=== PATIENT | female | born 1955 | race Caucasian/White ===

== ENCOUNTER → 2018-12-27 | Outpatient (CLI) | payer OTHER ==
[~2018-12-27] MED LIST: ALLO300 PO; AMOX500 PO; ASPI81CH PO; AZIT500 PO; Aspir 8181 MG PO; CEPH500 PO; CODACE30 PO; CYCL10 PO; DELTASONE20 MG PO; FURO20 PO; HYDACE5 PO; HYDURE500 PO; MELO7.5 PO; OXYACE5T PO; POTCHL20ER PO; SULTRIDS PO; Sprycel100 MG PO; TRAM50 PO
[2018-12-31 13:07] LABS: HPV 16 Negative (Negative); HPV 18 Negative (Negative); HPV OTHER HR TYPES Negative (Negative)
== END | disposition home or self-care (01) ==
LOC: LAB 12:00 → LAB SHORT 12:00
PROVIDERS: Physician Assistant
DX: Z01.419 Encounter for gynecological examination (general) (routine) without abnormal findings (principal)
CPT/HCPCS: 87624; G0145

== ENCOUNTER → 2019-01-03 | Outpatient (CLI) | payer OTHER | END | disposition home or self-care (01) | LOC: LAB SHORT 13:34 → LAB EV 13:34 | DX: T22.011A Burn of unspecified degree of right forearm, initial encounter (principal) | CPT/HCPCS: 87070; 87075; 87205 ==

== ENCOUNTER → 2019-05-28 | Outpatient (CLI) | payer OTHER ==
[2019-05-28 11:25] LABS: BASOPHILS ABSOLUTE AUTO 0.04 K/mm3 (0.00-0.23); BASOPHILS PERCENT AUTO 1 % (0-2); EOSINOPHILS ABSOLUTE AUTO 0.15 K/mm3 (0.00-0.68); EOSINOPHILS PERCENT AUTO 2 % (0-6); Hematocrit 39.3 % (33.0-51.0); Hemoglobin 12.9 g/dL (11.5-16.0); IMMATURE GRAN ABSOLUTE AUTO 0.03 K/mm3 (0.00-0.10); IMMATURE GRAN PERCENT AUTO 0 % (0-1); LYMPHOCYTES ABSOLUTE AUTO 0.86 K/mm3 (0.84-5.20); LYMPHOCYTES PERCENT AUTO 12 % (21-46); MONOCYTES ABSOLUTE AUTO 0.73 K/mm3 (0.16-1.47); MONOCYTES PERCENT AUTO 10 % (4-13); Mean Corpuscular HGB 29.7 pg (26.0-34.0); Mean Corpuscular HGB Conc 32.8 g/dL (31.5-36.5); Mean Corpuscular Volume 91 fL (80-100); Mean Platelet Volume 10.4 fL (9.1-12.4); NEUTROPHILS ABSOLUTE AUTO 5.57 K/mm3 (1.96-9.15); NEUTROPHILS PERCENT AUTO 76 % (41-73); Platelet Count 226 K/mm3 (150-400); RDW Coefficient Variation 15.7 % (11.7-14.2); RDW Standard Deviation 51.9 fL (35.1-46.3); Red Blood Cell Count 4.34 M/mm3 (3.80-5.20); White Blood Cell Count 7.38 K/mm3 (4.00-11.30)
== END ==
LOC: LAB EV 11:21 → LAB SHORT 11:21
PROVIDERS: Physician Assistant
DX: C92.11 Chronic myeloid leukemia, BCR/ABL-positive, in remission (principal)
CPT/HCPCS: 85025

== ENCOUNTER → 2019-06-05 | Outpatient (CLI) | payer OTHER ==
[2019-06-05 15:46] LABS: Anion Gap 6 mmol/L (6-16); Blood Urea Nitrogen 9 mg/dL (8-24); Bun/Creatinine Ratio 17.6 (12.0-20.0); CO2, Blood 33 mmol/L (21-32); Calcium, Blood 8.5 mg/dL (8.5-10.1); Chloride, Blood 101 mmol/L (98-108); Creatinine, Blood 0.51 mg/dL (0.40-1.00); Glomerular Filtration Rate >60 (60-); Glucose, Blood 98 mg/dL (70-99); Potassium, Blood 4.1 mmol/L (3.5-5.5); Sodium, Blood 140 mmol/L (136-145)
[2019-06-05 15:56] LABS: BASOPHILS ABSOLUTE AUTO 0.04 K/mm3 (0.00-0.23); BASOPHILS PERCENT AUTO 1 % (0-2); EOSINOPHILS PERCENT AUTO 4 % (0-6); Hematocrit 38.6 % (33.0-51.0); Hemoglobin 12.5 g/dL (11.5-16.0); IMMATURE GRAN ABSOLUTE AUTO 0.01 K/mm3 (0.00-0.10); IMMATURE GRAN PERCENT AUTO 0 % (0-1); LYMPHOCYTES ABSOLUTE AUTO 1.32 K/mm3 (0.84-5.20); LYMPHOCYTES PERCENT AUTO 17 % (21-46); MONOCYTES ABSOLUTE AUTO 0.81 K/mm3 (0.16-1.47); MONOCYTES PERCENT AUTO 11 % (4-13); Mean Corpuscular HGB 29.1 pg (26.0-34.0); Mean Corpuscular HGB Conc 32.4 g/dL (31.5-36.5); Mean Corpuscular Volume 90 fL (80-100); Mean Platelet Volume 9.3 fL (9.1-12.4); NEUTROPHILS ABSOLUTE AUTO 5.22 K/mm3 (1.96-9.15); NEUTROPHILS PERCENT AUTO 68 % (41-73); Platelet Count 342 K/mm3 (150-400); RDW Coefficient Variation 14.7 % (11.7-14.2); RDW Standard Deviation 48.9 fL (35.1-46.3); Red Blood Cell Count 4.29 M/mm3 (3.80-5.20)
== END | disposition home or self-care (01) ==
LOC: LAB EV 15:37 → LAB SHORT 15:37
PROVIDERS: Physician Assistant Surgical
DX: R06.00 Dyspnea, unspecified (principal)
CPT/HCPCS: 80048; 83880; 85025

== ENCOUNTER 2019-09-11 08:37 | Day surgery (SDC) | payer OTHER ==
[~2019-09-11] VITALS: Ht 160 cm; Wt 73.0 kg
[2019-09-11] MEDS ORDERED: INCRUSE ELLI62.5 MC1 (09:01)
[2019-09-11] MEDS ORDERED: ALBU3IS (09:01)
== END 2019-09-11 10:38 | disposition home or self-care (01) ==
LOC: ORSCSDS 08:37
PROVIDERS: Internal Medicine Gastroenterology
PROC: 0DBN8ZX Excision of Sigmoid Colon, Via Natural or Artificial Opening Endoscopic, Diagnostic (ICD-10-PCS; principal; 2019-09-11 09:45)
PROC: 0DBL8ZX Excision of Transverse Colon, Via Natural or Artificial Opening Endoscopic, Diagnostic (ICD-10-PCS; principal; 2019-09-11 09:45)
PROC: 0DBH8ZX Excision of Cecum, Via Natural or Artificial Opening Endoscopic, Diagnostic (ICD-10-PCS; principal; 2019-09-11 09:45)
DX: Z12.11 Encounter for screening for malignant neoplasm of colon (principal); D12.0 Benign neoplasm of cecum; D12.3 Benign neoplasm of transverse colon; K64.8 Other hemorrhoids; K57.30 Diverticulosis of large intestine without perforation or abscess without bleeding; K52.9 Noninfective gastroenteritis and colitis, unspecified; D12.5 Benign neoplasm of sigmoid colon; J44.9 Chronic obstructive pulmonary disease, unspecified; Z87.891 Personal history of nicotine dependence; Z79.82 Long term (current) use of aspirin; Z79.899 Other long term (current) drug therapy
CPT/HCPCS: 88305; J2704; J7120

== ENCOUNTER → 2021-02-28 | Outpatient (CLI) | payer OTHER ==
[~2021-02-28] MED LIST changes: +ALBU3IS; +INCRUSE ELLI62.5 MC1
[2021-02-28 11:15] LABS: BASOPHILS ABSOLUTE AUTO 0.01 K/mm3 (0.00-0.23); BASOPHILS PERCENT AUTO 0 % (0-2); EOSINOPHILS PERCENT AUTO 0 % (0-6); Hematocrit 33.2 % (33.0-51.0); IMMATURE GRAN ABSOLUTE AUTO 0.01 K/mm3 (0.00-0.10); IMMATURE GRAN PERCENT AUTO 0 % (0-1); LYMPHOCYTES ABSOLUTE AUTO 0.54 K/mm3 (0.84-5.20); LYMPHOCYTES PERCENT AUTO 15 % (21-46); MONOCYTES PERCENT AUTO 11 % (4-13); Mean Corpuscular HGB 27.7 pg (26.0-34.0); Mean Corpuscular HGB Conc 33.1 g/dL (31.5-36.5); Mean Corpuscular Volume 84 fL (80-100); Mean Platelet Volume 10.4 fL (9.1-12.4); NEUTROPHILS ABSOLUTE AUTO 2.69 K/mm3 (1.96-9.15); NEUTROPHILS PERCENT AUTO 74 % (41-73); Platelet Count 202 K/mm3 (150-400); RDW Coefficient Variation 14.6 % (11.7-14.2); RDW Standard Deviation 44.1 fL (35.1-46.3); Red Blood Cell Count 3.97 M/mm3 (3.80-5.20); White Blood Cell Count 3.65 K/mm3 (4.00-11.30)
[2021-02-28 11:52] LABS: Alanine Aminotransfer (ALT/SGP 22 U/L (12-78); Albumin, Blood 2.8 g/dL (3.4-5.0); Albumin/Globulin Ratio 0.9 (0.8-1.8); Alk Phos 53 U/L (50-136); Anion Gap 8 mmol/L (6-16); Aspartate Aminotrans (AST/SGOT 24 U/L (12-37); Bilirubin, Total 0.2 mg/dL (0.1-1.0); Blood Urea Nitrogen 14 mg/dL (8-24); CO2, Blood 30 mmol/L (21-32); Calcium, Blood 8.3 mg/dL (8.5-10.1); Chloride, Blood 98 mmol/L (98-108); Creatinine, Blood 0.56 mg/dL (0.40-1.00); Globulin, Blood 3.1 g/dL (2.2-4.0); Glomerular Filtration Rate >60 (60-); Glucose, Blood 94 mg/dL (70-99); Potassium, Blood 3.7 mmol/L (3.5-5.5); Sodium, Blood 136 mmol/L (136-145); Total Protein, Blood 5.9 g/dL (6.4-8.2)
== END | disposition home or self-care (01) ==
LOC: LAB 11:10 → LAB SHORT 11:10
PROVIDERS: Physician Assistant
DX: J18.9 Pneumonia, unspecified organism (principal)
CPT/HCPCS: 80053; 85025; 85379

== ENCOUNTER 2022-04-18 15:10 | Inpatient (IN) | payer MEDICARE, OTHER ==
[~2022-04-18] VITALS: Ht 160 cm; Wt 74.8 kg
[2022-04-18 16:25] LABS: BASOPHILS ABSOLUTE AUTO 0.01 K/mm3 (0.00-0.23); BASOPHILS PERCENT AUTO 0 % (0-2); EOSINOPHILS ABSOLUTE AUTO 0.04 K/mm3 (0.00-0.68); EOSINOPHILS PERCENT AUTO 1 % (0-6); Hematocrit 36.6 % (33.0-51.0); Hemoglobin 11.8 g/dL (11.5-16.0); IMMATURE GRAN ABSOLUTE AUTO 0.01 K/mm3 (0.00-0.10); IMMATURE GRAN PERCENT AUTO 0 % (0-1); LYMPHOCYTES ABSOLUTE AUTO 0.54 K/mm3 (0.84-5.20); LYMPHOCYTES PERCENT AUTO 10 % (21-46); MONOCYTES ABSOLUTE AUTO 0.92 K/mm3 (0.16-1.47); MONOCYTES PERCENT AUTO 16 % (4-13); Mean Corpuscular HGB 28.4 pg (26.0-34.0); Mean Corpuscular HGB Conc 32.2 g/dL (31.5-36.5); Mean Corpuscular Volume 88 fL (80-100); Mean Platelet Volume 9.7 fL (9.1-12.4); NEUTROPHILS ABSOLUTE AUTO 4.17 K/mm3 (1.96-9.15); NEUTROPHILS PERCENT AUTO 73 % (41-73); Platelet Count 316 K/mm3 (150-400); RDW Coefficient Variation 13.8 % (11.7-14.2); RDW Standard Deviation 44.7 fL (35.1-46.3); Red Blood Cell Count 4.15 M/mm3 (3.80-5.20); White Blood Cell Count 5.69 K/mm3 (4.00-11.30)
[2022-04-18 16:47] LABS: Albumin, Blood 3.1 g/dL (3.4-5.0); Albumin/Globulin Ratio 0.7 (0.8-1.8); Bilirubin, Total 0.4 mg/dL (0.1-1.0); Bun/Creatinine Ratio 27.1 (12.0-20.0); Calcium, Blood 9.3 mg/dL (8.5-10.1); Creatinine, Blood 0.44 mg/dL (0.40-1.00); Globulin, Blood 4.2 g/dL (2.2-4.0); Potassium, Blood 3.5 mmol/L (3.5-5.5); Total Protein, Blood 7.3 g/dL (6.4-8.2)
[2022-04-18 19:41] LABS: CPK Creatine Kinase 69 U/L (26-193)
[2022-04-18 19:48] LABS: Source, Urine Foley catheter
[2022-04-18 19:58] LABS: Appearance, Urine Clear (Clear); Bilirubin, Urine Neg (Neg); Blood, Urine 1+ (Neg); Color, Urine Yellow (P-Yellow); Glucose Qualitative, Urine Neg (Neg); Ketones, Urine 4+ (Neg); Leukocyte Esterase, Urine Neg (Neg); Nitrite, Urine Neg (Neg); Protein, Urine 3+ (Neg); Urobilinogen, Urine 1+ (Normal)
[2022-04-18 20:28] LABS: Bacteria Rare /hpf; Mucus Light (0-Heavy); Red Blood Cells, Urine 0-2 /hpf (0-2); Squamous Epithelial Cells Rare /hpf (Few); White Blood Cells, Urine 0-2 /hpf (0-5)
[2022-04-19] MEDS ORDERED: ALDACTONE100 MG (00:36)
[2022-04-19] MEDS ORDERED: DULERA 100 MCG/13 GM INH (00:37)
[2022-04-19] MEDS ORDERED: TIOT18 INH (00:39)
--- NOTE | 2022-04-19 01:08 | NUR ---
ADMISSION PT ADMITTED TO PCU 16, PT IS A&O X4, SBA, ULLOA CATH IN PLACE DRAINING CLEAR YELLOW URINE. LUNG SOUNDS DIMINISHED BILATERAL W/INTERMITTENT WHEEZES, PT IS ON CPAP 5 L O2. PT ORIENTED TO ROOM, CALL LIGHT IN REACH.
[2022-04-19 04:00] LABS: Albumin, Blood 2.6 g/dL (3.4-5.0); Albumin/Globulin Ratio 0.6 (0.8-1.8); Bilirubin, Total 0.4 mg/dL (0.1-1.0); Bun/Creatinine Ratio 29.3 (12.0-20.0); Calcium, Blood 8.4 mg/dL (8.5-10.1); Creatinine, Blood 0.44 mg/dL (0.40-1.00); Globulin, Blood 4.3 g/dL (2.2-4.0); Potassium, Blood 4.2 mmol/L (3.5-5.5); Total Protein, Blood 6.9 g/dL (6.4-8.2)
[2022-04-19 04:01] LABS: Hematocrit 36.3 % (33.0-51.0); Mean Corpuscular HGB 28.1 pg (26.0-34.0); Mean Corpuscular HGB Conc 33.1 g/dL (31.5-36.5); Mean Corpuscular Volume 85 fL (80-100); RDW Coefficient Variation 13.8 % (11.7-14.2); RDW Standard Deviation 42.5 fL (35.1-46.3); Red Blood Cell Count 4.27 M/mm3 (3.80-5.20)
[2022-04-19 04:03] LABS: Mean Platelet Volume 10.5 fL (9.1-12.4); Platelet Count 289 K/mm3 (150-400)
[2022-04-19 05:23] LABS: BAND PERCENT MAN 13 % (0-8); BASOPHILS PERCENT MAN 0 % (0-2); EOSINOPHILS PERCENT MAN 0 % (0-6); LYMPHOCYTES ABSOLUTE MAN 0.31 K/mm3 (0.84-5.20); LYMPHOCYTES PERCENT MAN 6 % (21-46); METAMYELOCYTE ABSOLUTE MAN 0.05 K/mm3 (0.00-0.00); METAMYELOCYTE PERCENT MAN 1 % (0-0); MONOCYTES ABSOLUTE MAN 0.05 K/mm3 (0.16-1.47); MONOCYTES PERCENT MAN 1 % (4-13); NEUTROPHILS ABSOLUTE MAN 4.78 K/mm3 (1.96-9.15); SEG NEUTROPHILS PERCENT MAN 79 % (41-73); TOTAL CELLS COUNTED 100
--- NOTE | 2022-04-19 07:30 | NUR ---
INITIAL ASSESSMENT: Patient is awake sitting up in bed coughing, she is alert and oriented. She denies pain at this time. HRR, SR in the 90s with a BBB per telemetry,pt denies chest pain some shortness of breath related to the pneumonia. Biox is 98% on 5L via NC, this RN was able to titrate oxygen down to 3l via NC while in the room, saturations remain in the low 90s. She has a PC with thick brothers sputum, sputum sample sent this AM. BT+, pt states her nausea has subsided this am but that she is hungry-plan to talk with MD about diet order. PPP. VSS. Patient denies other needs at this time. Call light in reach.
--- NOTE | 2022-04-19 18:04 | NUR ---
PATIENT TRANSFERRED FROM PCU 16 TO ROOM 325, REPORT RECEIVED FROM ADELFO SHARP. A/OX4, PATIENT ABLE TO TRANSFER WITH A SBA. VSS, 3LO2 TO MAINTAIN SATS. LUNGS CLEAR/DIMINISHED. ORIENTED TO ROOM AND USE OF CALL LIGHT.
--- NOTE | 2022-04-20 04:09 | NUR ---
ME[employer] SAL[employer] MANAGER SUMMARY VSS. HOB ELEVATED FOR RESP COMFORT, SHE SEEMED TO BE COUGHING MORE OFTEN WHEN LAYING FLAT. O2 PER NC AT 3L/NC. VOICED HEADACHE, NOTIFIED AND TYLENOL ORDERED. CURRENTLY RESTING QUIETLY. MED EFFECTIVE. LULOA DRAINING. CALL LIGHT IN REACH. WILL CONTINUE TO MONITOR.
[2022-04-20 05:43] LABS: BASOPHILS ABSOLUTE AUTO 0.02 K/mm3 (0.00-0.23); BASOPHILS PERCENT AUTO 0 % (0-2); EOSINOPHILS ABSOLUTE AUTO 0.05 K/mm3 (0.00-0.68); EOSINOPHILS PERCENT AUTO 1 % (0-6); Hematocrit 34.7 % (33.0-51.0); IMMATURE GRAN ABSOLUTE AUTO 0.04 K/mm3 (0.00-0.10); IMMATURE GRAN PERCENT AUTO 1 % (0-1); LYMPHOCYTES ABSOLUTE AUTO 0.78 K/mm3 (0.84-5.20); LYMPHOCYTES PERCENT AUTO 15 % (21-46); MONOCYTES ABSOLUTE AUTO 0.93 K/mm3 (0.16-1.47); MONOCYTES PERCENT AUTO 18 % (4-13); Mean Corpuscular HGB 28.1 pg (26.0-34.0); Mean Corpuscular HGB Conc 31.7 g/dL (31.5-36.5); Mean Corpuscular Volume 89 fL (80-100); Mean Platelet Volume 9.8 fL (9.1-12.4); NEUTROPHILS ABSOLUTE AUTO 3.28 K/mm3 (1.96-9.15); NEUTROPHILS PERCENT AUTO 64 % (41-73); Platelet Count 380 K/mm3 (150-400); RDW Coefficient Variation 13.6 % (11.7-14.2); RDW Standard Deviation 44.1 fL (35.1-46.3); Red Blood Cell Count 3.92 M/mm3 (3.80-5.20)
[2022-04-20 06:09] LABS: Bun/Creatinine Ratio 42.2 (12.0-20.0); Calcium, Blood 8.8 mg/dL (8.5-10.1); Creatinine, Blood 0.5 mg/dL (0.40-1.00); Potassium, Blood 3.1 mmol/L (3.5-5.5)
[2022-04-20 15:16] LABS: PCO2 Arterial 70.7 mmHg (35-45); PO2 Arterial 82.8 mmHg (80-100); pH Blood Arterial 7.42 (7.35-7.45)
[2022-04-20] MEDS ORDERED: AMOCLA875 PO (18:42)
[2022-04-20] MEDS ORDERED: Azithromycin250 MG PO (18:42)
[2022-04-20] MEDS ORDERED: GUAI600T33 PO (18:43)
[2022-04-20] MEDS ORDERED: ONDA4ODT MM (18:58)
--- NOTE | 2022-04-20 19:25 | NUR ---
SHIFT SUMMARY PTN TO D/C THIS SHIFT, PAPERWORK REVIEWED WITH PTN, INSTRUCTIONS FOR SELF CARE. PTN WAS SEEN BY PT TODAY WHO REPORTED PTN COULD WALK 25 FEET WITH WALKER, BUT THEN BECAME SOB. PT RECOMMENDED 4-WHEEL WALKER SO THAT SHE COULD TURN AND SIT, AND ALSO HELP WITH THINGS LIKE MEALS, LAUNDRY. HOME HEALTH WAS RECOMMENDED. PTN AT 4L O2, AND HAS OXYGEN AT HOME. ILSA WAS IN TO GET HER A PORTABLE TO GET HOME WITH. PTN HAD HER ULLOA OUT TODAY AND HAS BEEN VOIDING SINCE. PTN BROUGHT IN HOME MED SPRYCEL, WHICH SHE IS TAKING HOME. PTN DID HAVE A CRITICAL LAB REPORTED BY NANCY IN LAB, CO2 OF 70.7, ALL LAB VALUES FOR THIS ABG DRAW WERE REPORTED TO DR FATIMA. PTN IS TO BE ESCORTED VIA WC BY [facility] TO EXIT, AND DAUGHTER IS PRESENT AND WILL BE TAKING HER HOME. MEDICATIONS WERE FAXED TO [facility].
== END 2022-04-20 19:46 | disposition home health service (06) | DRG 193 ==
LOC: ER 15:10 → PCU 04-19 00:10 → MEDS 04-19 17:35
PROVIDERS: Family Medicine; Student in an Organized Health Care Education/Training Program; ADMIT Internal Medicine
PROC: 5A09357 Assistance with Respiratory Ventilation, Less than 24 Consecutive Hours, Continuous Positive Airway Pressure (ICD-10-PCS; principal; 2022-04-19)
DX: J18.9 Pneumonia, unspecified organism (principal); J96.21 Acute and chronic respiratory failure with hypoxia; C92.10 Chronic myeloid leukemia, BCR/ABL-positive, not having achieved remission; J44.0 Chronic obstructive pulmonary disease with (acute) lower respiratory infection; J96.12 Chronic respiratory failure with hypercapnia; F32.A Depression, unspecified; I50.9 Heart failure, unspecified; G47.33 Obstructive sleep apnea (adult) (pediatric); Z91.048 Other nonmedicinal substance allergy status; Z79.82 Long term (current) use of aspirin; Z79.51 Long term (current) use of inhaled steroids; Z98.890 Other specified postprocedural states; Z79.899 Other long term (current) drug therapy; Z87.891 Personal history of nicotine dependence; Z92.21 Personal history of antineoplastic chemotherapy
CPT/HCPCS: 36415; 36600; 51702; 71045; 80048; 80053; 81001; 82550; 82803; 83605; 83880; 84145; 84484; 85025; 87070; 87205; 93005; 93010; 93306; 94640; 94644; 94660; 94664; 94667; 94761; 94762; 96365-59; 96366-59; 96372-59; 96375-59; 97116; 97162; 98960; 99285-25; A9270; J0456; J0696; J1650; J1940; J2405; J2930; J7050

== ENCOUNTER 2022-05-10 15:49 | Inpatient (IN) | payer MEDICARE, OTHER ==
[~2022-05-10] VITALS: Ht 160 cm; Wt 79.0 kg
[~2022-05-10 15:49] MED LIST changes: +ALDACTONE100 MG; +AMOCLA875 PO; +Azithromycin250 MG PO; +DULERA 100 MCG/13 GM INH; +GUAI600T33 PO; +ONDA4ODT MM; +TIOT18 INH
[2022-05-10 16:06] LABS: Base Excess Venous 17.1 mmol/L; Bicarbonate Venous 37.5 mmol/L (24.0-30.0); PCO2 Venous 84.6 mmHg (38-42); pH Blood Venous 7.32 (7.34-7.37)
[2022-05-10 16:17] LABS: BASOPHILS ABSOLUTE AUTO 0.01 K/mm3 (0.00-0.23); BASOPHILS PERCENT AUTO 0 % (0-2); EOSINOPHILS ABSOLUTE AUTO 0.09 K/mm3 (0.00-0.68); EOSINOPHILS PERCENT AUTO 2 % (0-6); Hematocrit 33.1 % (33.0-51.0); Hemoglobin 10.1 g/dL (11.5-16.0); IMMATURE GRAN PERCENT AUTO 0 % (0-1); LYMPHOCYTES ABSOLUTE AUTO 0.87 K/mm3 (0.84-5.20); LYMPHOCYTES PERCENT AUTO 15 % (21-46); MONOCYTES ABSOLUTE AUTO 0.63 K/mm3 (0.16-1.47); MONOCYTES PERCENT AUTO 11 % (4-13); Mean Corpuscular HGB 28.2 pg (26.0-34.0); Mean Corpuscular HGB Conc 30.5 g/dL (31.5-36.5); Mean Corpuscular Volume 93 fL (80-100); Mean Platelet Volume 9.8 fL (9.1-12.4); NEUTROPHILS PERCENT AUTO 73 % (41-73); Platelet Count 288 K/mm3 (150-400); RDW Coefficient Variation 14.4 % (11.7-14.2); RDW Standard Deviation 49.3 fL (35.1-46.3); Red Blood Cell Count 3.58 M/mm3 (3.80-5.20)
[2022-05-10 16:32] LABS: Alanine Aminotransfer (ALT/SGP 18 U/L (12-78); Albumin, Blood 2.9 g/dL (3.4-5.0); Albumin/Globulin Ratio 0.8 (0.8-1.8); Alk Phos 62 U/L (50-136); Anion Gap Unable to Calculate mmol/L (6-16); Aspartate Aminotrans (AST/SGOT 14 U/L (12-37); Bilirubin, Total 0.3 mg/dL (0.1-1.0); Blood Urea Nitrogen 12 mg/dL (8-24); Bun/Creatinine Ratio 37.9 (12.0-20.0); CO2, Blood 41 mmol/L (21-32); Calcium, Blood 8.9 mg/dL (8.5-10.1); Chloride, Blood 96 mmol/L (98-108); Creatinine, Blood 0.32 mg/dL (0.40-1.00); Globulin, Blood 3.8 g/dL (2.2-4.0); Glomerular Filtration Rate 116 (60-); Glucose, Blood 104 mg/dL (70-99); Potassium, Blood 3.8 mmol/L (3.5-5.5); Sodium, Blood 136 mmol/L (136-145); Total Protein, Blood 6.7 g/dL (6.4-8.2)
[2022-05-10] MEDS ORDERED: DULERA 200 MCG-13 GM (19:42)
[2022-05-10] MEDS ORDERED: SPIRIVA RESPIMAT4 G3 (19:42)
[2022-05-11 06:03] LABS: BASOPHILS PERCENT AUTO 0 % (0-2); EOSINOPHILS PERCENT AUTO 0 % (0-6); Hematocrit 32.6 % (33.0-51.0); Hemoglobin 10.3 g/dL (11.5-16.0); IMMATURE GRAN ABSOLUTE AUTO 0.01 K/mm3 (0.00-0.10); IMMATURE GRAN PERCENT AUTO 0 % (0-1); LYMPHOCYTES ABSOLUTE AUTO 0.29 K/mm3 (0.84-5.20); LYMPHOCYTES PERCENT AUTO 11 % (21-46); MONOCYTES ABSOLUTE AUTO 0.03 K/mm3 (0.16-1.47); MONOCYTES PERCENT AUTO 1 % (4-13); Mean Corpuscular HGB 28.6 pg (26.0-34.0); Mean Corpuscular HGB Conc 31.6 g/dL (31.5-36.5); Mean Corpuscular Volume 91 fL (80-100); Mean Platelet Volume 9.9 fL (9.1-12.4); NEUTROPHILS ABSOLUTE AUTO 2.27 K/mm3 (1.96-9.15); NEUTROPHILS PERCENT AUTO 87 % (41-73); Platelet Count 293 K/mm3 (150-400); RDW Coefficient Variation 14.4 % (11.7-14.2); RDW Standard Deviation 47.4 fL (35.1-46.3)
[2022-05-11 06:29] LABS: Albumin, Blood 2.7 g/dL (3.4-5.0); Albumin/Globulin Ratio 0.7 (0.8-1.8); Bilirubin, Total 0.2 mg/dL (0.1-1.0); Bun/Creatinine Ratio 29.9 (12.0-20.0); Calcium, Blood 8.6 mg/dL (8.5-10.1); Creatinine, Blood 0.34 mg/dL (0.40-1.00); Globulin, Blood 3.9 g/dL (2.2-4.0); Potassium, Blood 4.1 mmol/L (3.5-5.5); Total Protein, Blood 6.6 g/dL (6.4-8.2)
--- NOTE | 2022-05-11 07:16 | NUR ---
SHIFT SUMMARY PT AOX4, APPEARED DYSPNEIC WHEN OFF BIPAP BUT SPO2 MAINTAINED >95% ON 4-5 L O2 VIA NC. TACHYPNEIC UNTIL DOSE OF ATIVAN GIVEN WHILE ON BIPAP TO HELP PT TOLERATE D/T C/O DIFFICULTY BREATHING AND RT URI AT BEDSIDE CONCERNED IT COULD BE R/T ANXIETY. FOLLOWING DOSE OF ATIVAN PT RR DROPPED TO BACKUP RATE ON BIPAP, TWO SEPARATE EPISODES OF PT SPO2 DROPPING INTO 80'S RECOVERED BY INCREASING FIO2. PT SITTING UP IN BED AWAKE THIS AM ON 4 L O2 VIA NC, SATS >96%, APPEARS TACHYPNEIC BUT DENIES ANY SIGNIFICANT DISTRESS THIS AM. IS REQUESTING BREAKFAST. HAS BEEN NPO OTHER THAN MOIST SWABS AND SMALL SIPS OF WATER W/BIPAP OFF. PT UP TO COMMODE AT BEDSIDE WITH STANDBY ASSIST.
[2022-05-11 14:06] LABS: International Normalized Ratio 1.01; Prothrombin Time Results 10.6 Sec (9.7-11.5)
[2022-05-11 16:46] LABS: Cholesterol, Body Fluid 73 mg/dL; Glucose, Body Fluid 145 mg/dL; Lactate Dehydrogenase, Body Fl 112 U/L; Protein, Body Fluid 4.1 g/dL
[2022-05-11 16:58] LABS: Automated BF RBC Count 0.006 M/mm3 (0-0); Automated BF WBC Count 2.436 K/mm3 (0-999)
[2022-05-11 17:01] LABS: Body Fluid WBC Count 2436 /mm3 (0-999); RBC Count, Body Fluid 6000 /mm3 (0-0)
--- NOTE | 2022-05-11 19:03 | NUR ---
Shift Summary Pt alert, oriented x4; calm and cooperative with care. Pt resting in bed for majority of shift, up to bsc with sba. Pt denies pain, chest pain/pressure, nausea, dizziness, numb/tingling. Tele sinus, bp stable. Tele noted st elevation, pt denies chest pain/pressure or othe distress, notified Dr Moran, new orders for EKG and to follow up with oncall Dr, Dr Maldonado notiifed. Spo2 >90% on 4l o2 via nc, breathing labored and uneven this am, pt to thoracentesis, 900ml off, when pt returned to room breathing was even and unlabored, pt reporting "feeling much better." Other vss. No other acute changes noted. Will continue to monitor unitl report given to oncoming rn.
[2022-05-11 19:12] LABS: Appearance, Body Fluid Hazy (Clear); Color, Body Fluid Yellow (None-Yellow); Total Cell Count, Body Fluid 100
[2022-05-12 06:56] LABS: BASOPHILS PERCENT AUTO 0 % (0-2); EOSINOPHILS PERCENT AUTO 0 % (0-6); Hematocrit 33.2 % (33.0-51.0); Hemoglobin 10.5 g/dL (11.5-16.0); IMMATURE GRAN ABSOLUTE AUTO 0.02 K/mm3 (0.00-0.10); IMMATURE GRAN PERCENT AUTO 0 % (0-1); LYMPHOCYTES ABSOLUTE AUTO 0.58 K/mm3 (0.84-5.20); LYMPHOCYTES PERCENT AUTO 11 % (21-46); MONOCYTES ABSOLUTE AUTO 0.31 K/mm3 (0.16-1.47); MONOCYTES PERCENT AUTO 6 % (4-13); Mean Corpuscular HGB 28.5 pg (26.0-34.0); Mean Corpuscular HGB Conc 31.6 g/dL (31.5-36.5); Mean Corpuscular Volume 90 fL (80-100); Mean Platelet Volume 9.9 fL (9.1-12.4); NEUTROPHILS ABSOLUTE AUTO 4.58 K/mm3 (1.96-9.15); NEUTROPHILS PERCENT AUTO 83 % (41-73); Platelet Count 334 K/mm3 (150-400); RDW Coefficient Variation 14.5 % (11.7-14.2); RDW Standard Deviation 47.8 fL (35.1-46.3); Red Blood Cell Count 3.69 M/mm3 (3.80-5.20); White Blood Cell Count 5.49 K/mm3 (4.00-11.30)
--- NOTE | 2022-05-12 07:07 | NUR ---
SHIFT SUMMARY PT AOX4, SOME EPISODES OF TRIGEMINY T/O SHIFT. PT DENIED CP. SOME TACHYPNEA BUT STATES BREATHING IS FEELING BETTER THAN NIGHT BEFORE. INDEPENDENT UP TO THE COMMODE T/O SHIFT WITH STANDBY ASSIST, CALLS APPROPRIATELY.
--- NOTE | 2022-05-12 10:12 | NUR ---
CARE ASSUMPTION THIS RN ASSUMED CARE AT 0700. VSS. SPO2 >95% ON 4L NC. PATIENT IS ALERT AND ORIENTED X4. PATIENT REPORTS NO PAIN, CHEST PAIN/PRESSURE, OR SHORTNESS OF BREATH. PATIENT ABF IS ACTIVE NONTENDER. PATIENT SKIN IS CLEAN DRY AND INTACT WITH SCATTERED BRUISING IN LOWER EXTREMITIES. PATIENT URINATES FREQUENTLY. PATIENT USES CALL LIGHT APPRORPIATELY. PATIENT IS INDEPDENT IN ADLS AND CALLS BEFORE GETTING UP. PLAN OF CARE IS UP TO DATE. MED STATUS NO TELE. CALL [facility] WITHIN REACH.
--- NOTE | 2022-05-12 13:14 | NUR ---
REPORT TO MEDICAL FLOOR RN THIS RN GAVE REPORT TO MEDICAL FLOOR RN SCOTT SHIN. ALL OF PATIENT BELONGINGS GATHERED. PATIENT LEFT UNIT IN NO DISTRESS AND ALL BELONGINGS WITH PATIENT. NO ACUTE CHANGES SINCE THIS RN ASSUMED CARE.
--- NOTE | 2022-05-12 13:23 | NUR ---
UPDATE TO FAMILY THIS RN UPDATED, CORI, PATIENTS DAUGHTER OF PATIENT MOVING TO MEDICAL FLOOR AND UPDATE ON PLAN OF CARE.
[2022-05-12 17:07] LABS: Potassium, Blood 4.5 mmol/L (3.5-5.5)
[2022-05-12 17:08] LABS: Albumin, Blood 2.8 g/dL (3.4-5.0); Albumin/Globulin Ratio 0.7 (0.8-1.8); Bilirubin, Total 0.2 mg/dL (0.1-1.0); Bun/Creatinine Ratio 56.8 (12.0-20.0); Calcium, Blood 8.9 mg/dL (8.5-10.1); Creatinine, Blood 0.37 mg/dL (0.40-1.00); Globulin, Blood 3.8 g/dL (2.2-4.0); Total Protein, Blood 6.6 g/dL (6.4-8.2)
--- NOTE | 2022-05-12 17:36 | NUR ---
SHIFT SUMMARY: PT A&O X4. PT ARRIVED TO FLOOR AT 1330 FROM PCU5. PT HAS IV IN RAC AND LAC. PATENT AND FLUSHING W/O COMPLICATIONS. RECEIVED IN REPORT THAT PT HAS LEUKEMIA AND DOES NOT HAVE HOME CANCER MEDICATION. PT STATED SHE HAS SPOKEN TO THE DOCTOR ABOUT THIS ISSUE. PT STATES SHE IS FEELING MUCH BETTER AFTER REMOVING FLUID VIA THORACENTESIS. ONCOLOGY CONSULT CALLED BY PCU NURSE PRIOR TO TRANSFER. ABX GIVEN W/O ISSUES. CALL LIGHT IN REACH. WILL CONTINUE TO MONITOR.
--- NOTE | 2022-05-12 20:46 | NUR ---
HUMIDITY ADDED TO 02 FOR PATIENT COMFORT.
[2022-05-13 05:37] LABS: BASOPHILS ABSOLUTE AUTO 0.02 K/mm3 (0.00-0.23); BASOPHILS PERCENT AUTO 0 % (0-2); EOSINOPHILS ABSOLUTE AUTO 0.09 K/mm3 (0.00-0.68); EOSINOPHILS PERCENT AUTO 2 % (0-6); Hematocrit 32.6 % (33.0-51.0); Hemoglobin 10.3 g/dL (11.5-16.0); IMMATURE GRAN ABSOLUTE AUTO 0.01 K/mm3 (0.00-0.10); IMMATURE GRAN PERCENT AUTO 0 % (0-1); LYMPHOCYTES ABSOLUTE AUTO 1.17 K/mm3 (0.84-5.20); LYMPHOCYTES PERCENT AUTO 24 % (21-46); MONOCYTES ABSOLUTE AUTO 0.59 K/mm3 (0.16-1.47); MONOCYTES PERCENT AUTO 12 % (4-13); Mean Corpuscular HGB 28.2 pg (26.0-34.0); Mean Corpuscular HGB Conc 31.6 g/dL (31.5-36.5); Mean Corpuscular Volume 89 fL (80-100); Mean Platelet Volume 9.6 fL (9.1-12.4); NEUTROPHILS PERCENT AUTO 62 % (41-73); Platelet Count 319 K/mm3 (150-400); RDW Coefficient Variation 14.7 % (11.7-14.2); RDW Standard Deviation 48.1 fL (35.1-46.3); Red Blood Cell Count 3.65 M/mm3 (3.80-5.20); White Blood Cell Count 4.88 K/mm3 (4.00-11.30)
--- NOTE | 2022-05-13 06:38 | NUR ---
COMFORTABLE NIGHT. GAYATHRI WAS UP SEVERAL TIMES TO VOID IN THE BATHROOM. SHE IS NOW STABLE ON HER FEET AND INDEPENDENT. 02 AT 4L NC WHICH IS HER HOME DOSE. SHE IS PLEASANT AND A&OX4 WITHOUT ANY COMPLAINT OF PAIN OR DISCOMFORT AND IS LOOKING FORWARD TO "SLEEPING IN HER OWN BED" SOON.
[2022-05-13 06:39] LABS: Bun/Creatinine Ratio 39.4 (12.0-20.0); Calcium, Blood 8.9 mg/dL (8.5-10.1); Creatinine, Blood 0.48 mg/dL (0.40-1.00); Potassium, Blood 3.9 mmol/L (3.5-5.5)
--- NOTE | 2022-05-13 17:47 | NUR ---
SHIFT SUMMARY: PT A&O X4. PLEASANT AND COOPERATIVE WITH ALL CARE. PT STATES THAT SHE BELIEVES SHE IS FEELING MUCH BETTER AND WANTS TO GO HOME BUT UNDERSTANDS THE NEED FOR REMAINING IN HOSPITAL. ORDER FOR NEW THORACENTESIS PLACED AROUND 1100. MORNING DOSE OF LOVENOX ALREADY GIVEN TO PT. PROCEDURE WILL TAKE PLACE TOMORROW. CHEST CT WAS PERFORMED. PT REMAINS ON 4L O2. CALL LIGHT IN REACH. WILL CONTINUE TO MONITOR.
--- NOTE | 2022-05-13 23:07 | NUR ---
PATIENT REQUESTING SLEEPING MEDICINE TONIGHT SHE HAS NOT BEEN ABLE TO ATTEST TO GIVEN HOW RESTLESS SHE WAS LAST NIGHT. MD NOTIFIED AND ORDER RECEIVED AND GIVEN FOR MELATONIN
--- NOTE | 2022-05-14 03:29 | NUR ---
GAYATHRI IS LOOKING FORWARD TO GOING HOME TODAY. SHE APPEARED TO HAVE FAR LESS DIFFICULTLY STAYING ASLEEP AND SLEEPING MORE CONSISTANTLY AFTER RECEIVING SMALL DOSE MELATONIN ABOUT AN HOUR AFTER HS. NO COMPLAINTS OF PAIN OF DISCOMFORT. VERY PLEASANT AND COOPERATIVE WITH CARE.
[2022-05-14 05:17] LABS: BASOPHILS ABSOLUTE AUTO 0.01 K/mm3 (0.00-0.23); BASOPHILS PERCENT AUTO 0 % (0-2); EOSINOPHILS ABSOLUTE AUTO 0.08 K/mm3 (0.00-0.68); EOSINOPHILS PERCENT AUTO 2 % (0-6); Hematocrit 34.6 % (33.0-51.0); IMMATURE GRAN ABSOLUTE AUTO 0.01 K/mm3 (0.00-0.10); IMMATURE GRAN PERCENT AUTO 0 % (0-1); LYMPHOCYTES ABSOLUTE AUTO 1.11 K/mm3 (0.84-5.20); LYMPHOCYTES PERCENT AUTO 24 % (21-46); MONOCYTES ABSOLUTE AUTO 0.54 K/mm3 (0.16-1.47); MONOCYTES PERCENT AUTO 12 % (4-13); Mean Corpuscular HGB 28.7 pg (26.0-34.0); Mean Corpuscular HGB Conc 31.8 g/dL (31.5-36.5); Mean Corpuscular Volume 90 fL (80-100); Mean Platelet Volume 9.8 fL (9.1-12.4); NEUTROPHILS ABSOLUTE AUTO 2.92 K/mm3 (1.96-9.15); NEUTROPHILS PERCENT AUTO 63 % (41-73); Platelet Count 322 K/mm3 (150-400); RDW Coefficient Variation 14.6 % (11.7-14.2); RDW Standard Deviation 48.4 fL (35.1-46.3); Red Blood Cell Count 3.83 M/mm3 (3.80-5.20); White Blood Cell Count 4.67 K/mm3 (4.00-11.30)
[2022-05-14 06:05] LABS: Bun/Creatinine Ratio 38.1 (12.0-20.0); Calcium, Blood 8.9 mg/dL (8.5-10.1); Creatinine, Blood 0.47 mg/dL (0.40-1.00); Potassium, Blood 4.1 mmol/L (3.5-5.5)
--- NOTE | 2022-05-14 08:00 | NUR ---
Pt laying in bed watching tv, will be having a thora today, sounds like it will be around noon, held lovenox for procedure, pt is a/ox3, pleasant and cooperative with care, follows commands well, denies pain, states she is breathing easier, and is aware about having the thora, lungs are dim all iniguez in left side, clear in upper iniguez on right, has occ nonproductive cough, is at home baseline of 4 liters 02 via n/c, resp even and unlabored, at rest, hrr, voids without diff, reports reg bm's, skin c/w/d, up ad reva in room, gait steady, piv to rac, site is clear and patent, amaris, call light in reach.
--- NOTE | 2022-05-14 13:45 | NUR ---
took pt down via wheelchair for thora, will discharge after.
[2022-05-14] MEDS ORDERED: PRED20 PO (14:54)
[2022-05-14] MEDS ORDERED: CEFP200 PO (14:54)
--- NOTE | 2022-05-14 16:22 | NUR ---
pt is being discharged, went over discharge instructions with her, she verbalized understanding, iv removed intact, new meds faxed to [facility], waiting on ride to get here, will call when ready.
--- NOTE | 2022-05-14 16:34 | NUR ---
pt left via wheelchair with upholstery cleaner and daughter in attendence, with all her belongings.
== END 2022-05-14 16:34 | disposition home or self-care (01) | DRG 186 ==
LOC: ER 15:49 → PCU 18:40 → MEDS 18:40 → PCU 19:11 → MEDS 05-12 13:23
PROVIDERS: Student in an Organized Health Care Education/Training Program; ADMIT Internal Medicine
PROC: 5A09357 Assistance with Respiratory Ventilation, Less than 24 Consecutive Hours, Continuous Positive Airway Pressure (ICD-10-PCS; 2022-05-10)
PROC: 0W993ZZ Drainage of Right Pleural Cavity, Percutaneous Approach (ICD-10-PCS; principal; 2022-05-11)
PROC: 0W9B3ZZ Drainage of Left Pleural Cavity, Percutaneous Approach (ICD-10-PCS; 2022-05-14)
DX: J90 Pleural effusion, not elsewhere classified (principal); J96.02 Acute respiratory failure with hypercapnia; J96.21 Acute and chronic respiratory failure with hypoxia; C92.10 Chronic myeloid leukemia, BCR/ABL-positive, not having achieved remission; F32.A Depression, unspecified; J43.9 Emphysema, unspecified; I27.20 Pulmonary hypertension, unspecified; Z91.048 Other nonmedicinal substance allergy status; Z79.82 Long term (current) use of aspirin; Z79.899 Other long term (current) drug therapy; Z79.2 Long term (current) use of antibiotics; Z79.51 Long term (current) use of inhaled steroids; Z98.890 Other specified postprocedural states; Z92.21 Personal history of antineoplastic chemotherapy; Z87.891 Personal history of nicotine dependence
CPT/HCPCS: 32555; 36415; 71045; 71046; 71250; 80048; 80053; 82465; 82803; 82945; 83615; 83880; 84145; 84157; 84484; 85025; 85610; 88108; 88305; 89051; 93005; 93010; 94640; 94660; 94664; 94760; 94762; 96365; 96366; 96368; 96375; 99285-25; A9270; J0456; J0696; J1650; J2060; J2920; J2930; J3475; J7050; J7512

== ENCOUNTER → 2024-07-19 | Outpatient (CLI) | payer OTHER ==
[~2024-07-19] MED LIST changes: +CEFP200 PO; +DULERA 200 MCG-13 GM; +PRED20 PO; +SPIRIVA RESPIMAT4 G3
[2024-07-19 14:39] LABS: Source, Urine Clean Catch
[2024-07-19 15:03] LABS: Appearance, Urine Hazy (Clear); Bilirubin, Urine Neg (Neg); Blood, Urine Trace (Neg); Color, Urine Yellow (P-Yellow); Glucose Qualitative, Urine Neg (Normal); Ketones, Urine Neg (Neg); Leukocyte Esterase, Urine 2+ (Neg); Nitrite, Urine Neg (Neg); Protein, Urine Trace (Neg); Specific Gravity, Urine 1.025 (1.003-1.022); Urobilinogen, Urine NORM (Normal)
[2024-07-19 15:04] LABS: Bacteria Mod /hpf; Red Blood Cells, Urine 0-2 /hpf (0-2); Squamous Epithelial Cells Few /hpf (Few); White Blood Cells, Urine 25-50 /hpf (0-5)
== END ==
LOC: LAB SHORT 14:19 → LAB 14:19
PROVIDERS: Physician Assistant
DX: N39.0 Urinary tract infection, site not specified (principal)
CPT/HCPCS: 81001; 87077; 87086; 87186

== ENCOUNTER → 2025-01-29 | Outpatient (CLI) | payer OTHER | LOC: LAB 12:33 → LAB SHORT 12:33 | DX: N39.0 Urinary tract infection, site not specified (principal) | CPT/HCPCS: 87077; 87086; 87186 ==